=== PATIENT | male | born 1950 | race Caucasian/White ===

== ENCOUNTER 2018-11-29 12:01 | Inpatient (IN) | payer MEDICARE ==
[~2018-11-29] VITALS: Ht 175.3 cm; Wt 71.7 kg
[~2018-11-29 12:01] MED LIST: HYDROCODONE-APA1 TA1; HYDROCODONE-APA1 TA1 PO
[2018-11-29 12:06] VITALS: BP 162/97
[2018-11-29] MEDS ORDERED: PROTONIX 20 MG20 M1 PO (12:11)
[2018-11-29] MEDS ORDERED: ALLERGY MEDICAT25 MG PO (12:12)
[2018-11-29 13:32] LABS: URINE BILIRUBIN NEGATIVE (Negative); URINE BLOOD NEGATIVE (Negative); URINE CLARITY CLEAR; URINE COLOR YELLOW; URINE GLUCOSE-RANDOM NEGATIVE (Negative); URINE KETONES 1+ (Negative); URINE LEUKOCYTES-REFLEX NEGATIVE (Negative); URINE NITRITE-REFLEX NEGATIVE (Negative); URINE PROTEIN NEGATIVE (Negative); URINE SPECIFIC GRAVITY >= 1.030 (1.005-1.030); URINE UROBILINOGEN 0.2 E.U./dl (0.2-1.0)
[2018-11-29 13:49] LABS: HEMATOCRIT 49.3 % (42.0-52.0); HEMOGLOBIN 16.5 gm/dL (14.0-18.0); MCH 30.7 pg (26.0-34.0); MCHC 33.4 g/dL (28.0-37.0); MCV 91.8 fL (80.0-100.0); NUCLEATED RBCS 0 /100WBC; PLATELET COUNT* 358 thou/uL (150-400); RBC 5.37 mil/uL (4.50-6.00); RDW-CV 14.2 % (10.5-14.5)
[2018-11-29 13:56] LABS: ANION GAP 7 mmol/L (7-16); BUN 20 mg/dL (7-18); CALCIUM 9.2 mg/dL (8.5-10.1); CHLORIDE 101 mmol/L (98-107); CO2 29 mmol/L (21-32); GLUCOSE 115 mg/dL (70-99); POTASSIUM 3.9 mmol/L (3.5-5.1); SODIUM 137 mmol/L (136-145)
[2018-11-29 14:03] LABS: ALBUMIN 3.7 g/dL (3.4-5.0); ALKALINE PHOSPHATASE 84 U/L (46-116); LIPASE 94 U/L (73-393); SGOT 20 U/L (15-37); SGPT 22 U/L (30-65); TOTAL BILIRUBIN 0.5 mg/dL (<0.1-1.0); TOTAL PROTEIN 7.4 g/dL (6.4-8.2); TROPONIN-I LEVEL <0.06 ng/mL (<0.06)
[2018-11-29 14:56] LABS: ABSOLUTE EOSINOPHILS 0.1 thou/uL (0.0-0.7); ABSOLUTE LYMPHOCYTES 1.3 thou/uL (0.8-5.3); ABSOLUTE MONOCYTES 0.3 thou/uL (0.0-1.2); ABSOLUTE NEUTROPHILS 11.3 thou/uL (1.6-8.1); PLATELET ESTIMATE ADEQUATE
--- NOTE | 2018-11-29 15:50 | EKG ---
[place] [address] ELECTROCARDIOGRAM REPORT Name: BRIANNA MORALES Room: [facility]#: [id number] Admission: 11/29/18 Attend Phys: Discharge: Date of : 52 Report #: [id number] THIS REPORT FOR: //name// [facility] ED Test Date: 2018-11-29 Test Time: 13:26:57 Pat Name: BRIANNA MORALES Department: Room: Gender: M An/Syq 13 Nav/C2 Operator: : 1950 Requested By: Marla Garza Order Number: [id number] MD: Harry Lind Measurements Intervals Armstrong Rate: 61 P: 40 MI: 138 QRS: -43 QRSD: 91 T: 50 QT: 408 QTc: 411 Interpretive Statements Sinus rhythm Ventricular premature complex Left axis deviation Compared to ECG 05/07/2014 01:32:00 Ventricular premature complex(es) now present Left-axis deviation now present Prolonged QT interval no longer present Electronically Signed On 11-29-2018 15:49:59 MOBILE APPLICATION ARCHITECT by Harry Lind [email or web address] <ELECTRONICALLY SIGNED> By: Harry Lind MD, [facility] 11/29/18 1549 [id number] Harry Lind MD, [facility] /EPI
[2018-11-29 18:06] VITALS: BP 132/70
[2018-11-29 18:25] VITALS: BP 157/71
[2018-11-29 20:20] VITALS: BP 135/72
[2018-11-30 04:44] LABS: HEMATOCRIT 40.9 % (42.0-52.0); MCH 31.3 pg (26.0-34.0); MCHC 34.3 g/dL (28.0-37.0); MCV 91.4 fL (80.0-100.0); MPV 8.1 fl. (7.2-11.1); RBC 4.48 mil/uL (4.50-6.00); RDW-CV 13.9 % (10.5-14.5); WBC 8.8 thou/uL (4.0-11.0)
[2018-11-30 04:46] LABS: ALBUMIN 2.8 g/dL (3.4-5.0); CALCIUM 8.6 mg/dL (8.5-10.1); MAGNESIUM 2.3 mg/dL (1.8-2.4); PHOSPHORUS* 3.6 mg/dL (2.5-4.9); POTASSIUM 4.1 mmol/L (3.5-5.1); TOTAL BILIRUBIN 0.6 mg/dL (<0.1-1.0); TOTAL PROTEIN 5.7 g/dL (6.4-8.2)
--- NOTE | 2018-11-30 04:49 | NUR ---
PT CARE ASSUMED AT 1930. SAT MAINTAINED IN RA. ALERT AND ORIENTED X4. CALL LIGHT WITHIN REACH AND BED IN LOW POSITION. DENIES ABDOMINAL PAIN. HOURLY ROUNDING DONE FOR PT SAFETY.
[2018-11-30 08:00] VITALS: BP 151/84
[2018-11-30 11:49] VITALS: BP 151/84
[2018-11-30 12:49] VITALS: BP 151/84
--- NOTE | 2018-11-30 13:25 | NUR ---
PATIENT LEFT UNIT AT 1320. ALERT AND ORIENTED X4. UP AD SANG IN ROOM. IV DC'D. DENIES NEED FOR PAIN MEDICATION. DENIES NAUSEA. TOLERATING DIET. ALL PERSONAL ITEMS LEFT WITH PATIENT. DISCHARGE INSTRUCTIONS, PRESCRIPTIONS, AND NEW MEDICATION INFORMATION SENT WITH PATIENT. VSS ON ROOM AIR. HOURLY ROUNDS HAVE BEEN MAINTAINED THROUGHOUT SHIFT. LEFT WITH VIA CAR.
[2018-11-30 13:31] VITALS: BP 151/84
== END 2018-11-30 13:20 | disposition home or self-care (01) | DRG 395 ==
LOC: M.ERS 12:01 → M.TBA-ER 17:22 → M.ERS 17:22 → M.ORTHSURG 17:33 → M.TBA-ER 17:33 → M.ORTHSURG 17:44
PROVIDERS: Physician Assistant; ADMIT Surgery
DX: K40.20 Bilateral inguinal hernia, without obstruction or gangrene, not specified as recurrent (principal); K21.9 Gastro-esophageal reflux disease without esophagitis; D72.829 Elevated white blood cell count, unspecified; K80.50 Calculus of bile duct without cholangitis or cholecystitis without obstruction; Z79.899 Other long term (current) drug therapy